=== PATIENT | male | born 1960 | race African-American/Black ===

== ENCOUNTER 2022-07-05 14:33 | Emergency (ER) | payer OTHER ==
[2022-07-05 14:41] VITALS: BMI 23.0
[2022-07-05] MEDS ORDERED: LIDOCAINE HCL 2% JELLY 10 ML CARTRIDGE ONE (15:01)
[2022-07-05] MEDS ORDERED: ONDANSETRON 4 MG/2 ML VIAL IVPUSH ONE (15:15)
[2022-07-05] MEDS ORDERED: ONDANSETRON 4 MG/2 ML VIAL ONE (15:28)
[2022-07-05 15:40] LABS: HEMATOCRIT 38.6 % (35.4-49); HEMOGLOBIN 13.2 GM/dL (11.7-16.9); MCH 35.4 pg (25.7-33.7); MCHC 34.3 g/dl (32.0-35.9); MEAN CELL VOLUME 103.2 fl (80-96); MEAN PLT VOLUME 6.8 fl (7.5-11.1); PLATELET COUNT 259 10^3/uL (134-434); RBC 3.74 M/mm3 (4.00-5.60); RDW 12.9 % (11.9-15.9); WHITE BLOOD COUNT 10.6 K/mm3 (4.0-10.0)
[2022-07-05] MEDS ORDERED: LIDOCAINE HCL 1%, 10 MG/ML (50 mL VIAL) SQ ONE (15:46)
[2022-07-05] MEDS ORDERED: LIDOCAINE HCL 1%, 10 MG/ML (20ML VIAL) ONE (15:46)
[2022-07-05 16:07] LABS: ALBUMIN 4.4 g/dl (3.4-5.0); CALCIUM 9.5 mg/dL (8.5-10.1)
[2022-07-05 16:08] LABS: BLOOD UREA NITROGEN 14.1 mg/dL (7-18)
[2022-07-05] MEDS ORDERED: CEFTRIAXONE 1,000 MG in DEXTROSE 5%-WATER - 50 ML IVPB ONE (16:09)
[2022-07-05 16:12] LABS: BILIRUBIN,TOTAL 0.5 mg/dL (0.2-1); TOT PROT 7.2 g/dl (6.4-8.2)
[2022-07-05 16:20] LABS: ANISOCYTOSIS 1+; MACROCYTOSIS 1+
[2022-07-05 16:28] LABS: EPI CELLS 0 /uL (0-25.1); HYALINE CASTS 0 /uL (0-3.1); PH,URINE 5.5 (5.0-8.0); URINE APPEARANCE CLEAR; URINE BACTERIA 2 /uL (0-1359); URINE BILIRUBIN NEGATIVE (NEGATIVE); URINE COLOR YELLOW; URINE GLUCOSE (UA) NEGATIVE (NEGATIVE); URINE KETONE NEGATIVE (NEGATIVE); URINE LEUK ESTERASE NEGATIVE (NEGATIVE); URINE NITRITE NEGATIVE (NEGATIVE); URINE PROTEIN NEGATIVE (NEGATIVE); URINE RBC 162 /uL (0-23.9); URINE UROBILINOGEN 0.2 mg/dL (0.2-1.0); URINE WBC 4 /uL (0-25.8)
[2022-07-05] MEDS ORDERED: CEFTRIAXONE 1 GM/50 ML BAG ONE (16:30)
[2022-07-05 17:07] VITALS: BP 103/60; PULSE 57; RESP 16; TEMP 98.8
== END 2022-07-05 17:05 | disposition home or self-care (01) ==
LOC: JER 14:33
PROC: 3E03329 Introduction of Other Anti-infective into Peripheral Vein, Percutaneous Approach (ICD-10-PCS; principal; 2022-07-05)
PROC: 3E033NZ Introduction of Analgesics, Hypnotics, Sedatives into Peripheral Vein, Percutaneous Approach (ICD-10-PCS; 2022-07-05)
PROC: 3E033GC Introduction of Other Therapeutic Substance into Peripheral Vein, Percutaneous Approach (ICD-10-PCS; 2022-07-05)
DX: R33.9 Retention of urine, unspecified (principal)
CPT/HCPCS: 36415; 76775-TC; 80053; 81003; 85025; 87086; 99284-25

== ENCOUNTER 2022-07-08 09:12 | Emergency (ER) | payer OTHER ==
[2022-07-08 09:21] VITALS: BP 104/70; PULSE 62; RESP 18; TEMP 98.3; BMI 23.0
== END 2022-07-08 13:00 | disposition home or self-care (01) ==
LOC: JER 09:12
DX: T83.010A Breakdown (mechanical) of cystostomy catheter, initial encounter (principal)
CPT/HCPCS: 99282-25

== ENCOUNTER 2022-07-11 11:18 | Emergency (ER) | payer OTHER ==
[2022-07-11 11:49] VITALS: TEMP 98.5; BMI 21.7
[2022-07-11 14:41] LABS: BASO % 0.5 % (0-2.0); EOS % 1.1 % (0-4.5); HEMATOCRIT 38.6 % (35.4-49); LYMPH % 16.5 % (8-40); MCH 35.4 pg (25.7-33.7); MCHC 33.7 g/dl (32.0-35.9); MEAN CELL VOLUME 105.1 fl (80-96); MEAN PLT VOLUME 6.4 fl (7.5-11.1); NEUT % 73.9 % (42.8-82.8); PLATELET COUNT 269 10^3/uL (134-434); RBC 3.68 M/mm3 (4.00-5.60); RDW 12.8 % (11.9-15.9); WHITE BLOOD COUNT 5.9 K/mm3 (4.0-10.0)
[2022-07-11 14:46] LABS: INR 1.09 (0.83-1.09); PROTHROMBIN TIME (PATIENT) 12.6 SEC (9.7-13.0)
[2022-07-11 14:49] LABS: ACTIVATED PTT 31.9 SECONDS (25.2-36.5)
[2022-07-11 14:59] LABS: BLOOD UREA NITROGEN 13.4 mg/dL (7-18); CALCIUM 9.5 mg/dL (8.5-10.1)
[2022-07-11 15:03] LABS: CREATININE 0.6 mg/dL (0.55-1.3)
[2022-07-11 15:04] LABS: BILIRUBIN,TOTAL 0.7 mg/dL (0.2-1); TOT PROT 7.1 g/dl (6.4-8.2)
[2022-07-11 15:25] LABS: ANISOCYTOSIS 1+; MACROCYTOSIS 0
[2022-07-11 15:39] VITALS: BP 110/70; PULSE 67; RESP 20
== END 2022-07-11 15:39 | disposition home or self-care (01) ==
LOC: JER 11:18
DX: T85.898A Other specified complication of other internal prosthetic devices, implants and grafts, initial encounter (principal)
CPT/HCPCS: 36415; 71046-TC-FY; 80053; 85025; 85610; 85730; 93005; 93010; 99285-25

== ENCOUNTER 2022-07-22 11:42 | Emergency (ER) | payer OTHER ==
[2022-07-22 12:07] VITALS: TEMP 98.2; BMI 23.0
[2022-07-22 15:05] LABS: BASO % 0.8 % (0-2.0); EOS % 1.2 % (0-4.5); HEMOGLOBIN 12.4 GM/dL (11.7-16.9); LYMPH % 6.3 % (8-40); MCHC 34.4 g/dl (32.0-35.9); MEAN CELL VOLUME 104.7 fl (80-96); MEAN PLT VOLUME 5.9 fl (7.5-11.1); MONO % 9.1 % (3.8-10.2); NEUT % 82.6 % (42.8-82.8); PLATELET COUNT 236 10^3/uL (134-434); RBC 3.44 M/mm3 (4.00-5.60); RDW 13.1 % (11.9-15.9); WHITE BLOOD COUNT 10.9 K/mm3 (4.0-10.0)
[2022-07-22 15:25] LABS: CALCIUM 8.8 mg/dL (8.5-10.1)
[2022-07-22 15:26] LABS: ALBUMIN 3.4 g/dl (3.4-5.0); BLOOD UREA NITROGEN 15.4 mg/dL (7-18)
[2022-07-22 15:29] LABS: CREATININE 0.6 mg/dL (0.55-1.3)
[2022-07-22 15:31] LABS: BILIRUBIN,TOTAL 0.5 mg/dL (0.2-1); TOT PROT 6.4 g/dl (6.4-8.2)
[2022-07-22 17:51] VITALS: BP 128/73; PULSE 96; RESP 18
== END 2022-07-22 17:51 | disposition home or self-care (01) ==
LOC: JER 11:42
DX: T83.518A Infection and inflammatory reaction due to other urinary catheter, initial encounter (principal)
CPT/HCPCS: 36415; 80053; 85025; 99283-25

== ENCOUNTER 2022-10-02 12:33 | Emergency (ER) | payer OTHER ==
[2022-10-02 13:12] VITALS: RESP 18; BMI 26.6
[2022-10-02] MEDS ORDERED: ACETAMINOPHEN 500 MG TABLET (FP) PO ONE (14:36)
[2022-10-02 15:27] LABS: EPI CELLS 11 /uL (0-25.1); HYALINE CASTS 4 /uL (0-3.1); URINE APPEARANCE TURBID; URINE BACTERIA 1195 /uL (0-1359); URINE BILIRUBIN NEGATIVE (NEGATIVE); URINE COLOR YELLOW; URINE GLUCOSE (UA) NEGATIVE (NEGATIVE); URINE KETONE NEGATIVE (NEGATIVE); URINE LEUK ESTERASE 3+ (NEGATIVE); URINE NITRITE NEGATIVE (NEGATIVE); URINE PROTEIN 3+ (NEGATIVE); URINE UROBILINOGEN 0.2 mg/dL (0.2-1.0); URINE WBC 4819 /uL (0-25.8)
[2022-10-02] MEDS ORDERED: SULFAMETHOXAZOLE/TRIMETHOPRIM 800MG/160MG D.S. TABLET PO ONE (15:54)
[2022-10-02] MEDS ORDERED: SULFAMETHOXAZOLE/TRIMETHOPRIM 800MG/160MG D.S. TABLET ONE (16:02)
[2022-10-02] MEDS ORDERED: ACETAMINOPHEN 325 MG TABLET (FP) ONE (16:02)
[2022-10-02 17:06] VITALS: PULSE 74; TEMP 97.6
[2022-10-02 19:41] LABS: URINE RBC 560 /uL (0-23.9)
[2022-10-13 19:40] VITALS: BP 104/60
== END 2022-10-02 18:15 | disposition home or self-care (01) ==
LOC: JER 12:33
PROC: 0T2BX0Z Change Drainage Device in Bladder, External Approach (ICD-10-PCS; principal; 2022-10-02)
DX: T83.511A Infection and inflammatory reaction due to indwelling urethral catheter, initial encounter (principal)
CPT/HCPCS: 81003; 87070; 87086; 87186; 87205; 99283-25

== ENCOUNTER 2022-12-04 12:17 | Emergency (ER) | payer OTHER ==
[2022-12-04 12:29] VITALS: BMI 23.4
[2022-12-04 14:07] LABS: EPI CELLS 14 /uL (0-25.1); HYALINE CASTS 2 /uL (0-3.1); PH,URINE 5.5 (5.0-8.0); URINE APPEARANCE CLOUDY; URINE BACTERIA 509 /uL (0-1359); URINE BILIRUBIN NEGATIVE (NEGATIVE); URINE COLOR YELLOW; URINE GLUCOSE (UA) NEGATIVE (NEGATIVE); URINE KETONE NEGATIVE (NEGATIVE); URINE LEUK ESTERASE 2+ (NEGATIVE); URINE NITRITE NEGATIVE (NEGATIVE); URINE PROTEIN 1+ (NEGATIVE); URINE RBC 176 /uL (0-23.9); URINE WBC 1353 /uL (0-25.8)
[2022-12-04] MEDS ORDERED: SULFAMETHOXAZOLE/TRIMETHOPRIM 800MG/160MG D.S. TABLET PO ONE (14:14)
[2022-12-04] MEDS ORDERED: SULFAMETHOXAZOLE/TRIMETHOPRIM 800MG/160MG D.S. TABLET ONE (14:24)
[2022-12-04 15:46] VITALS: BP 106/66; PULSE 62; RESP 18; TEMP 97.6
== END 2022-12-04 16:24 | disposition home or self-care (01) ==
LOC: JER 12:17
DX: N39.0 Urinary tract infection, site not specified (principal); T83.098A Other mechanical complication of other urinary catheter, initial encounter
CPT/HCPCS: 76775-TC; 81003; 87086; 87186; 99284-25

== ENCOUNTER 2023-01-23 10:08 | Emergency (ER) | payer OTHER ==
[2023-01-23 10:22] VITALS: BP 110/67; PULSE 61; RESP 20; TEMP 97.7; BMI 23.4
[2023-01-23] MEDS ORDERED: LIDOCAINE HCL 2% JELLY 6 ML TP ONE (10:29)
[2023-01-23 11:30] LABS: EPI CELLS 10 /uL (0-25.1); HYALINE CASTS 13 /uL (0-3.1); PH,URINE 6.5 (5.0-8.0); URINE APPEARANCE CLOUDY; URINE BACTERIA 1329 /uL (0-1359); URINE BILIRUBIN NEGATIVE (NEGATIVE); URINE COLOR YELLOW; URINE GLUCOSE (UA) NEGATIVE (NEGATIVE); URINE KETONE NEGATIVE (NEGATIVE); URINE LEUK ESTERASE 2+ (NEGATIVE); URINE NITRITE NEGATIVE (NEGATIVE); URINE PROTEIN 2+ (NEGATIVE); URINE RBC 553 /uL (0-23.9); URINE WBC 711 /uL (0-25.8)
== END 2023-01-23 13:55 | disposition home or self-care (01) ==
LOC: JER 10:08
DX: N39.0 Urinary tract infection, site not specified (principal)
CPT/HCPCS: 81003; 87086; 99283-25

== ENCOUNTER 2023-01-26 07:46 | Emergency (ER) | payer OTHER ==
[2023-01-26 07:53] VITALS: RESP 20; TEMP 99.3; BMI 21.5
[2023-01-26 11:24] VITALS: BP 101/58; PULSE 63
== END 2023-01-26 11:32 | disposition home or self-care (01) ==
LOC: JER 07:46
PROC: 0T9B70Z Drainage of Bladder with Drainage Device, Via Natural or Artificial Opening (ICD-10-PCS; principal; 2023-01-26)
PROC: 3E033NZ Introduction of Analgesics, Hypnotics, Sedatives into Peripheral Vein, Percutaneous Approach (ICD-10-PCS; 2023-01-26)
DX: T83.011D Breakdown (mechanical) of indwelling urethral catheter, subsequent encounter (principal); Y84.6 Urinary catheterization as the cause of abnormal reaction of the patient, or of later complication, without mention of misadventure at the time of the procedure
CPT/HCPCS: 87086; 87186; 99283-25

== ENCOUNTER 2023-02-25 09:01 | Emergency (ER) | payer OTHER ==
[2023-02-25 09:37] VITALS: BMI 24.4
[2023-02-25 11:13] LABS: EPI CELLS 8 /uL (0-25.1); HYALINE CASTS 1 /uL (0-3.1); URINE APPEARANCE CLOUDY; URINE BACTERIA 1660 /uL (0-1359); URINE BILIRUBIN NEGATIVE (NEGATIVE); URINE COLOR ORANGE; URINE GLUCOSE (UA) NEGATIVE (NEGATIVE); URINE KETONE NEGATIVE (NEGATIVE); URINE LEUK ESTERASE 3+ (NEGATIVE); URINE NITRITE NEGATIVE (NEGATIVE); URINE PROTEIN 1+ (NEGATIVE); URINE RBC 2483 /uL (0-23.9); URINE UROBILINOGEN 0.2 mg/dL (0.2-1.0); URINE WBC 2642 /uL (0-25.8)
[2023-02-25 12:00] VITALS: BP 111/71; PULSE 62; RESP 16; TEMP 97.9
== END 2023-02-25 12:13 | disposition home or self-care (01) ==
LOC: JER 09:01
PROC: 0T9B70Z Drainage of Bladder with Drainage Device, Via Natural or Artificial Opening (ICD-10-PCS; principal; 2023-02-25)
DX: T83.031A Leakage of indwelling urethral catheter, initial encounter (principal); N30.01 Acute cystitis with hematuria; Y84.6 Urinary catheterization as the cause of abnormal reaction of the patient, or of later complication, without mention of misadventure at the time of the procedure
CPT/HCPCS: 81003; 87086; 87186; 99283-25

== ENCOUNTER 2023-03-25 08:31 | Emergency (ER) | payer OTHER ==
[2023-03-25 09:01] VITALS: BMI 24.4
[2023-03-25 10:29] LABS: EPI CELLS 5 /uL (0-25.1); HYALINE CASTS 0 /uL (0-3.1); PH,URINE 5.5 (5.0-8.0); URINE APPEARANCE CLOUDY; URINE BILIRUBIN NEGATIVE (NEGATIVE); URINE COLOR YELLOW; URINE GLUCOSE (UA) NEGATIVE (NEGATIVE); URINE KETONE NEGATIVE (NEGATIVE); URINE LEUK ESTERASE 2+ (NEGATIVE); URINE NITRITE POSITIVE (NEGATIVE); URINE PROTEIN 1+ (NEGATIVE); URINE RBC 1089 /uL (0-23.9); URINE UROBILINOGEN 0.2 mg/dL (0.2-1.0); URINE WBC 1829 /uL (0-25.8)
[2023-03-25] MEDS ORDERED: NITROFURANTOIN MACROCRYSTAL 50 MG CAPSULE (FP) PO SCH (11:30)
[2023-03-25 12:04] LABS: URINE BACTERIA 995.9 /uL (0-1359)
[2023-03-25 12:28] VITALS: RESP 18; TEMP 97.9
[2023-03-25] MEDS ORDERED: NITROFURANTOIN MACROCRYSTAL 50 MG CAPSULE (FP) ONE (14:08)
[2023-03-25 14:14] VITALS: BP 120/73; PULSE 87
== END 2023-03-25 14:15 | disposition home or self-care (01) ==
LOC: JER 08:31
PROC: 0T9B70Z Drainage of Bladder with Drainage Device, Via Natural or Artificial Opening (ICD-10-PCS; principal; 2023-03-25)
DX: T83.511D Infection and inflammatory reaction due to indwelling urethral catheter, subsequent encounter (principal); T83.9XXS Unspecified complication of genitourinary prosthetic device, implant and graft, sequela; N39.0 Urinary tract infection, site not specified; Y84.6 Urinary catheterization as the cause of abnormal reaction of the patient, or of later complication, without mention of misadventure at the time of the procedure
CPT/HCPCS: 81003; 87086; 87186; 99283-25

== ENCOUNTER 2023-04-17 09:17 | Emergency (ER) | payer OTHER ==
[2023-04-17 09:50] VITALS: RESP 18; BMI 19.0
[2023-04-17 10:41] LABS: EPI CELLS 8 /uL (0-25.1); HYALINE CASTS 7 /uL (0-3.1); PH,URINE 6.5 (5.0-8.0); URINE APPEARANCE CLEAR; URINE BILIRUBIN NEGATIVE (NEGATIVE); URINE COLOR YELLOW; URINE GLUCOSE (UA) NEGATIVE (NEGATIVE); URINE KETONE NEGATIVE (NEGATIVE); URINE LEUK ESTERASE 2+ (NEGATIVE); URINE NITRITE POSITIVE (NEGATIVE); URINE PROTEIN 1+ (NEGATIVE); URINE RBC 385 /uL (0-23.9); URINE WBC 656 /uL (0-25.8)
[2023-04-17] MEDS ORDERED: CEFTRIAXONE 1,000 MG in DEXTROSE 5%-WATER - 50 ML IVPB ONE (11:13)
[2023-04-17] MEDS ORDERED: cefTRIAXone SODIUM 1 GM VIAL ONE (12:39)
[2023-04-17] MEDS ORDERED: LIDOCAINE 5% TOPICAL PATCH TP ONE (13:01)
[2023-04-17] MEDS ORDERED: LIDOCAINE 5% TOPICAL PATCH ONE (13:08)
[2023-04-17 13:59] LABS: URINE BACTERIA 1233 /uL (0-1359)
[2023-04-17 15:17] VITALS: BP 135/75; PULSE 75; TEMP 98
[2023-04-17] MEDS ORDERED: LIDOCAINE PATCH REMOVAL MC ONE (22:00)
== END 2023-04-17 15:25 | disposition home or self-care (01) ==
LOC: JER 09:17
PROC: 3E02329 Introduction of Other Anti-infective into Muscle, Percutaneous Approach (ICD-10-PCS; principal; 2023-04-17)
PROC: 0T9B70Z Drainage of Bladder with Drainage Device, Via Natural or Artificial Opening (ICD-10-PCS; 2023-04-17)
DX: R20.8 Other disturbances of skin sensation (principal); T83.511D Infection and inflammatory reaction due to indwelling urethral catheter, subsequent encounter; Y84.6 Urinary catheterization as the cause of abnormal reaction of the patient, or of later complication, without mention of misadventure at the time of the procedure
CPT/HCPCS: 81003; 87086; 87186; 99284-25

== ENCOUNTER 2023-05-08 14:58 | Emergency (ER) | payer OTHER ==
[2023-05-08 15:25] VITALS: BP 107/75; PULSE 82; RESP 20; TEMP 98.1; BMI 24.2
== END 2023-05-08 17:43 | disposition home or self-care (01) ==
LOC: JER 14:58
PROC: 0T9B70Z Drainage of Bladder with Drainage Device, Via Natural or Artificial Opening (ICD-10-PCS; principal; 2023-05-08)
DX: T83.9XXA Unspecified complication of genitourinary prosthetic device, implant and graft, initial encounter (principal); R33.8 Other retention of urine
CPT/HCPCS: 99283-25

== ENCOUNTER 2023-05-13 13:51 | Emergency (ER) | payer OTHER ==
[2023-05-13 14:20] VITALS: TEMP 98.2; BMI 23.3
[2023-05-13] MEDS ORDERED: LACTATED RINGERS SOLUTION 1000 ML INFUS.BAG IV ONE (15:12)
[2023-05-13 16:10] LABS: BASO % 0.4 % (0-2.0); EOS % 2.6 % (0-4.5); HEMATOCRIT 35.8 % (35.4-49); HEMOGLOBIN 12.1 GM/dL (11.7-16.9); LYMPH % 14.7 % (8-40); MCH 34.4 pg (25.7-33.7); MCHC 33.9 g/dl (32.0-35.9); MEAN CELL VOLUME 101.6 fl (80-96); MEAN PLT VOLUME 6.1 fl (7.5-11.1); MONO % 10.2 % (3.8-10.2); NEUT % 72.1 % (42.8-82.8); PLATELET COUNT 224 10^3/uL (134-434); RBC 3.52 M/mm3 (4.00-5.60); RDW 13.2 % (11.9-15.9); WHITE BLOOD COUNT 6.1 K/mm3 (4.0-10.0)
[2023-05-13 16:30] LABS: POTASSIUM 4.2 mmol/L (3.5-5.1)
[2023-05-13 16:32] LABS: ALBUMIN 3.5 g/dl (3.4-5.0); BLOOD UREA NITROGEN 12.1 mg/dL (7-18)
[2023-05-13 16:35] LABS: CREATININE 0.8 mg/dL (0.55-1.3)
[2023-05-13 16:36] LABS: BILIRUBIN,TOTAL 0.4 mg/dL (0.2-1); TOT PROT 6.3 g/dl (6.4-8.2)
[2023-05-13 17:09] VITALS: BP 102/62; PULSE 58; RESP 16
[2023-05-13 17:15] LABS: EPI CELLS 14 /uL (0-25.1); HYALINE CASTS 5 /uL (0-3.1); URINE APPEARANCE CLOUDY; URINE BACTERIA 134 /uL (0-1359); URINE BILIRUBIN NEGATIVE (NEGATIVE); URINE COLOR YELLOW; URINE GLUCOSE (UA) NEGATIVE (NEGATIVE); URINE KETONE NEGATIVE (NEGATIVE); URINE LEUK ESTERASE 2+ (NEGATIVE); URINE NITRITE NEGATIVE (NEGATIVE); URINE PROTEIN 3+ (NEGATIVE); URINE RBC 79 /uL (0-23.9); URINE WBC 489 /uL (0-25.8)
== END 2023-05-13 21:57 | disposition home or self-care (01) ==
LOC: JER 13:51
PROC: 0T9B70Z Drainage of Bladder with Drainage Device, Via Natural or Artificial Opening (ICD-10-PCS; principal; 2023-05-13)
DX: T83.9XXS Unspecified complication of genitourinary prosthetic device, implant and graft, sequela (principal); T83.511D Infection and inflammatory reaction due to indwelling urethral catheter, subsequent encounter
CPT/HCPCS: 36415; 80053; 81003; 85025; 87086; 99283-25

== ENCOUNTER 2023-05-26 07:51 | Emergency (ER) | payer OTHER ==
[2023-05-26 08:24] VITALS: BP 117/72; PULSE 78; RESP 18; TEMP 97.8; BMI 24.4
[2023-05-26 09:44] LABS: EPI CELLS 30 /uL (0-25.1); HYALINE CASTS 1 /uL (0-3.1); PH,URINE 5.5 (5.0-8.0); URINE APPEARANCE CLEAR; URINE BACTERIA 31 /uL (0-1359); URINE BILIRUBIN NEGATIVE (NEGATIVE); URINE COLOR YELLOW; URINE GLUCOSE (UA) NEGATIVE (NEGATIVE); URINE KETONE NEGATIVE (NEGATIVE); URINE LEUK ESTERASE 2+ (NEGATIVE); URINE NITRITE NEGATIVE (NEGATIVE); URINE PROTEIN NEGATIVE (NEGATIVE); URINE RBC 16 /uL (0-23.9); URINE UROBILINOGEN 0.2 mg/dL (0.2-1.0); URINE WBC 412 /uL (0-25.8)
== END 2023-05-26 12:16 | disposition home or self-care (01) ==
LOC: JER 07:51
PROC: 0T9B70Z Drainage of Bladder with Drainage Device, Via Natural or Artificial Opening (ICD-10-PCS; principal; 2023-05-26)
DX: R33.9 Retention of urine, unspecified (principal); T83.511D Infection and inflammatory reaction due to indwelling urethral catheter, subsequent encounter
CPT/HCPCS: 81003; 87086; 99283-25

== ENCOUNTER 2023-06-02 08:14 | Emergency (ER) | payer OTHER ==
[2023-06-02 08:23] VITALS: BP 100/68; PULSE 71; RESP 18; TEMP 97.9; BMI 27.1
== END 2023-06-02 09:55 | disposition left against medical advice (07) ==
LOC: JER 08:14
DX: Z96.0 Presence of urogenital implants (principal)
CPT/HCPCS: 99281-25

== ENCOUNTER 2023-07-02 18:47 | Inpatient (IN) | payer OTHER ==
[2023-07-02] MEDS ORDERED: SODIUM CHLORIDE 1,000 ML IV STA (18:59)
[2023-07-02 19:02] VITALS: BMI 25.7
[2023-07-02] MEDS ORDERED: VANCOMYCIN 1,000 MG in DEXTROSE 5%-WATER - 250 ML IVPB ONE (19:12)
[2023-07-02] MEDS ORDERED: PIPERACILLIN/TAZOB 3.375 GM 3.375 GM in DEXTROSE 5%-WATER - 50 ML IVPB ONE (19:12)
[2023-07-02] MEDS ORDERED: SODIUM CHLORIDE 0.9% 500 ML INFUS.BAG IV ONE (19:29)
[2023-07-02 19:34] LABS: INR 1.1 (0.83-1.09); PROTHROMBIN TIME (PATIENT) 12.8 SEC (9.7-13.0)
[2023-07-02 19:36] LABS: ACTIVATED PTT 27.7 SECONDS (25.2-36.5)
[2023-07-02 19:41] LABS: POTASSIUM 3.9 mmol/L (3.5-5.1)
[2023-07-02 19:44] LABS: ALBUMIN 3.8 g/dl (3.4-5.0); BLOOD UREA NITROGEN 31.6 mg/dL (7-18); CALCIUM 9.4 mg/dL (8.5-10.1)
[2023-07-02] MEDS ORDERED: VANCOMYCIN 1 GRAM (PRE-DOCKED) 1,000 MG/250 ML BAG IVPB ONE (19:45)
[2023-07-02] MEDS ORDERED: PIPERACILLIN/TAZOB 3.375 GM 3.375 GM/50 ML BAG IVPB ONE (19:45)
[2023-07-02 19:46] LABS: VENOUS BASE EXCESS -5.7 mmol/L (-2-2); VENOUS O2 SATURATION 69.1 % (70-80); VENOUS PCO2 44.6 mmHg (38-52); VENOUS PH 7.289 (7.310-7.410)
[2023-07-02 19:47] LABS: CREATININE 1.9 mg/dL (0.55-1.3)
[2023-07-02 19:49] LABS: BILIRUBIN,TOTAL 0.5 mg/dL (0.2-1); TOT PROT 7.2 g/dl (6.4-8.2)
[2023-07-02 19:57] LABS: BASO % 0.6 % (0-2.0); EOS % 0.5 % (0-4.5); HEMATOCRIT 39.5 % (35.4-49); HEMOGLOBIN 13.4 GM/dL (11.7-16.9); LYMPH % 8.3 % (8-40); MCH 34.7 pg (25.7-33.7); MEAN PLT VOLUME 6.2 fl (7.5-11.1); MONO % 6.4 % (3.8-10.2); NEUT % 84.2 % (42.8-82.8); PLATELET COUNT 243 10^3/uL (134-434); RBC 3.87 M/mm3 (4.00-5.60); RDW 12.9 % (11.9-15.9); WHITE BLOOD COUNT 10.6 K/mm3 (4.0-10.0)
[2023-07-02 20:50] LABS: EPI CELLS 15 /uL (0-25.1); HYALINE CASTS 1 /uL (0-3.1); URINE APPEARANCE CLOUDY; URINE BACTERIA 663 /uL (0-1359); URINE BILIRUBIN NEGATIVE (NEGATIVE); URINE COLOR YELLOW; URINE GLUCOSE (UA) NEGATIVE (NEGATIVE); URINE KETONE NEGATIVE (NEGATIVE); URINE LEUK ESTERASE 3+ (NEGATIVE); URINE NITRITE NEGATIVE (NEGATIVE); URINE PROTEIN TRACE (NEGATIVE); URINE RBC 55 /uL (0-23.9); URINE UROBILINOGEN 0.2 mg/dL (0.2-1.0); URINE WBC 1438 /uL (0-25.8)
[2023-07-02 21:01] LABS: LACTIC ACID 4.2 mmol/L (0.4-2.0)
[2023-07-02] MEDS ORDERED: VANCOMYCIN 1,000 MG in DEXTROSE 5%-WATER - 250 ML IVPB SCH (23:45)
[2023-07-02] MEDS ORDERED: PIPERACILLIN/TAZOB 2.25 GM 2.25 GM in DEXTROSE 5%-WATER - 50 ML IVPB SCH (23:45)
[2023-07-02] MEDS ORDERED: HEPARIN NA (PORCINE) 5,000 UNITS/ML 1ML VIAL ONE (23:59)
[2023-07-03] MEDS: HEPARIN NA (PORCINE) 5,000 UNITS/ML 1ML VIAL SQ SCH ×4 (00:04→21:21)
[2023-07-03] MEDS: SODIUM CHLORIDE 1,000 ML IV SCH ×2 (02:30→16:44)
[2023-07-03] MEDS: PIPERACILLIN/TAZOB 2.25 GM 2.25 GM in DEXTROSE 5%-WATER - 50 ML IVPB SCH ×3 (02:30→17:52)
[2023-07-03] MEDS ORDERED: PIPERACILLIN/TAZOBACTAM 2.25 GM VIAL IVPB ONE (11:51)
[2023-07-03 13:53] LABS: BASO % 0.3 % (0-2.0); EOS % 0.9 % (0-4.5); HEMATOCRIT 39.7 % (35.4-49); HEMOGLOBIN 13.4 GM/dL (11.7-16.9); LYMPH % 9.7 % (8-40); MCH 34.8 pg (25.7-33.7); MCHC 33.8 g/dl (32.0-35.9); MEAN CELL VOLUME 102.9 fl (80-96); MEAN PLT VOLUME 6.4 fl (7.5-11.1); NEUT % 81.1 % (42.8-82.8); PLATELET COUNT 182 10^3/uL (134-434); RBC 3.85 M/mm3 (4.00-5.60); RDW 13.1 % (11.9-15.9); WHITE BLOOD COUNT 8.5 K/mm3 (4.0-10.0)
[2023-07-03 14:14] LABS: POTASSIUM 4.5 mmol/L (3.5-5.1)
[2023-07-03 14:16] LABS: CALCIUM 8.3 mg/dL (8.5-10.1)
[2023-07-03 14:17] LABS: ALBUMIN 3.3 g/dl (3.4-5.0); MAGNESIUM 1.7 mg/dL (1.8-2.4)
[2023-07-03 14:20] LABS: CREATININE 0.9 mg/dL (0.55-1.3); PHOSPHOROUS 3.3 mg/dL (2.5-4.9)
[2023-07-03 14:21] LABS: BILIRUBIN,TOTAL 0.5 mg/dL (0.2-1); TOT PROT 6.3 g/dl (6.4-8.2)
[2023-07-03 14:28] LABS: LACTIC ACID 2.5 mmol/L (0.4-2.0)
[2023-07-03] MEDS ORDERED: MAGNESIUM 2GM/50ML STERILE WATER IVPB IVPB ONE (15:55)
[2023-07-03] MEDS ORDERED: VANCOMYCIN/WATER FOR INJ (PEG) 1,000 MG/200 ML BAG IVPB SCH (19:00)
[2023-07-04] MEDS: HEPARIN NA (PORCINE) 5,000 UNITS/ML 1ML VIAL SQ SCH ×3 (06:10→21:24)
[2023-07-04] MEDS: SODIUM CHLORIDE 1,000 ML IV SCH ×3 (10:01→23:55)
[2023-07-05] MEDS: HEPARIN NA (PORCINE) 5,000 UNITS/ML 1ML VIAL SQ SCH ×3 (05:56→21:41)
[2023-07-05] MEDS ORDERED: SODIUM CHLORIDE 1,000 ML IV SCH (16:15)
[2023-07-05] MEDS: SODIUM CHLORIDE 1,000 ML IV SCH (23:55)
[2023-07-06] MEDS: HEPARIN NA (PORCINE) 5,000 UNITS/ML 1ML VIAL SQ SCH ×3 (06:31→21:01)
[2023-07-06 10:32] LABS: BASO % 0.5 % (0-2.0); HEMATOCRIT 39.7 % (35.4-49); HEMOGLOBIN 13.6 GM/dL (11.7-16.9); LYMPH % 17.4 % (8-40); MCH 34.4 pg (25.7-33.7); MCHC 34.3 g/dl (32.0-35.9); MEAN CELL VOLUME 100.3 fl (80-96); MEAN PLT VOLUME 6.5 fl (7.5-11.1); MONO % 7.5 % (3.8-10.2); NEUT % 72.6 % (42.8-82.8); PLATELET COUNT 232 10^3/uL (134-434); RBC 3.95 M/mm3 (4.00-5.60); RDW 12.4 % (11.9-15.9); WHITE BLOOD COUNT 6.1 K/mm3 (4.0-10.0)
[2023-07-06 10:52] LABS: POTASSIUM 4.3 mmol/L (3.5-5.1)
[2023-07-06 10:57] LABS: ALBUMIN 3.2 g/dl (3.4-5.0); BLOOD UREA NITROGEN 12.4 mg/dL (7-18); CALCIUM 8.7 mg/dL (8.5-10.1); MAGNESIUM 1.7 mg/dL (1.8-2.4)
[2023-07-06 10:59] LABS: BILIRUBIN,TOTAL 0.5 mg/dL (0.2-1)
[2023-07-06 11:01] LABS: CREATININE 0.7 mg/dL (0.55-1.3)
[2023-07-06 11:02] LABS: TOT PROT 6.3 g/dl (6.4-8.2)
[2023-07-06 14:31] VITALS: RESP 18
[2023-07-06] MEDS: SODIUM CHLORIDE 1,000 ML IV SCH (18:57)
[2023-07-07] MEDS: SODIUM CHLORIDE 1,000 ML IV SCH (05:41)
[2023-07-07] MEDS: HEPARIN NA (PORCINE) 5,000 UNITS/ML 1ML VIAL SQ SCH (06:05)
[2023-07-07 14:36] VITALS: BP 100/58; PULSE 73; TEMP 97.5
[2023-07-07] MEDS ORDERED: MAGNESIUM SULF 50% (8.12 MEQ/2 ML-1 GM VIAL) IVPB ONE (16:15)
[2023-07-07] MEDS ORDERED: MAGNESIUM OXIDE 400 MG TABLET (FP) PO ONE (16:25)
== END 2023-07-07 16:38 | disposition home or self-care (01) | DRG 469 ==
LOC: JER 18:47 → JERBED 22:59 → J6S 07-03 00:11
PROVIDERS: ADMIT Internal Medicine; ATTEND Internal Medicine
DX: N17.9 Acute kidney failure, unspecified (principal); E87.20 Acidosis, unspecified; R55 Syncope and collapse; E86.0 Dehydration; N40.1 Benign prostatic hyperplasia with lower urinary tract symptoms; R33.8 Other retention of urine; I95.89 Other hypotension; Z97.8 Presence of other specified devices
CPT/HCPCS: 36415; 71045-TC-FY; 76775-TC; 80053; 81003; 82550; 82803; 83605; 83690; 83735; 84100; 84484; 85025; 85610; 85730; 86850; 86900; 86901; 87040; 87086; 87186; 93005; 93010; 97116-GP; 97162-GP; 99285-25; J1644

== ENCOUNTER 2023-08-17 18:56 | Emergency (ER) | payer OTHER ==
[2023-08-17 19:04] VITALS: BP 110/75; PULSE 83; RESP 16; TEMP 98.1; BMI 28.5
== END 2023-08-17 23:51 | disposition home or self-care (01) ==
LOC: JER 18:56
PROC: 0T9B70Z Drainage of Bladder with Drainage Device, Via Natural or Artificial Opening (ICD-10-PCS; principal; 2023-08-17)
DX: T83.038A Leakage of other urinary catheter, initial encounter (principal); Y83.1 Surgical operation with implant of artificial internal device as the cause of abnormal reaction of the patient, or of later complication, without mention of misadventure at the time of the procedure
CPT/HCPCS: 99283-25

== ENCOUNTER 2023-08-19 01:04 | Emergency (ER) | payer OTHER ==
[2023-08-19] MEDS ORDERED: LIDOCAINE HCL 2% JELLY 10 ML CARTRIDGE PR ONE (01:28)
[2023-08-19] MEDS ORDERED: LIDOCAINE HCL 2% JELLY 11 ML TP ONE (01:29)
[2023-08-19 01:30] VITALS: BP 104/71; PULSE 68; RESP 17; TEMP 98.8; BMI 28.5
== END 2023-08-19 02:59 | disposition home or self-care (01) ==
LOC: JER 01:04
DX: T83.038A Leakage of other urinary catheter, initial encounter (principal); R30.0 Dysuria; R33.9 Retention of urine, unspecified
CPT/HCPCS: 36415; 87491; 87591; 99283-25

== ENCOUNTER 2025-06-19 22:49 | Inpatient (IN) | payer OTHER ==
[2025-06-19 23:20] VITALS: BMI 28.5
[2025-06-20] MEDS ORDERED: ACETAMINOPHEN INJECTION 100 ML ONE (00:06)
[2025-06-20] MEDS: SODIUM CHLORIDE 0.9% 500 ML INFUS.BAG IV ONE ×3 (00:23→03:48)
[2025-06-20] MEDS: ACETAMINOPHEN 1000 MG/100 ML BAG IVPB ONE (00:24)
[2025-06-20 00:30] LABS: EOSINOPHIL % 0.2 % (0.8-7.0); EOSINOPHILS # 0.03 x10^3/uL (0.04-0.54); MONOCYTE # 1.00 x10^3/uL (0.30-0.82)
[2025-06-20 00:32] LABS: ABSOLUTE IMMATURE GRANULOCYTES 0.07 x10^3/uL (0.0-0.031); BASOPHILS # 0.02 x10^3/uL (0.01-0.08); IMMATURE PLATELET FRACTION # 4.10 x10^3/uL; MCHC 32.6 g/dl (32.3-36.5); MEAN CELL VOLUME 102.5 fl (79.0-92.2); MEAN PLT VOLUME 9.7 fl (9.4-12.4); MONOCYTE % 7.9 % (5.3-12.2); RDW 12.4 % (12.2-16.4)
[2025-06-20 01:01] LABS: GLUCOSE,RANDOM 135.0 mg/dL (74-106)
[2025-06-20 01:02] LABS: TOT PROT 7.5 g/dl (6.4-8.2)
[2025-06-20 01:04] LABS: ALK PHOS 92.0 U/L (40-150)
[2025-06-20 01:07] LABS: SGOT/AST 87.0 U/L (5-34); SGPT/ALT 75.0 U/L (0-55)
[2025-06-20 01:22] LABS: CO2 21.0 mmol/L (21-32); CREATININE 0.8 mg/dL (0.55-1.3)
[2025-06-20 01:41] LABS: EPI CELLS 12 /uL (0-25.1); HYALINE CASTS 1 /uL (0-3.1); URINE APPEARANCE TURBID; URINE BACTERIA >9,000 /uL (0-1359); URINE BILIRUBIN NEGATIVE (NEGATIVE); URINE COLOR DK YELLOW; URINE GLUCOSE (UA) NEGATIVE (NEGATIVE); URINE KETONE NEGATIVE (NEGATIVE); URINE LEUK ESTERASE 3+ (NEGATIVE); URINE NITRITE POSITIVE (NEGATIVE); URINE PROTEIN 2+ (NEGATIVE); URINE RBC 80 /uL (0-23.9); URINE UROBILINOGEN 2.0 mg/dL (0.2-1.0); URINE WBC 5482 /uL (0-25.8)
[2025-06-20] MEDS ORDERED: VANCOMYCIN 1 GM PREMIX (F) 1 GM/200 ML BAG ONE (01:54)
[2025-06-20] MEDS ORDERED: PIPERACILLIN/TAZOB 4.5 GM 4.5 GM/100 ML BAG IVPB ONE (01:54)
[2025-06-20] MEDS: PIPERACILLIN/TAZOB 4.5 GM 4.5 GM in DEXTROSE 5%-WATER 100 ML IVPB ONE (01:56)
[2025-06-20] MEDS: VANCOMYCIN 1,000 MG in DEXTROSE 5%-WATER - 250 ML IVPB ONE (01:56)
[2025-06-20] MEDS ORDERED: KETOROLAC TROMETHAMINE 15 MG/ML VIAL ONE (03:47)
[2025-06-20] MEDS: KETOROLAC TROMETHAMINE 15 MG/ML VIAL IVPUSH ONE (03:48)
[2025-06-20] MEDS: PIPERACILLIN/TAZOB 3.375 GM 3.375 GM in DEXTROSE 5%-WATER - 50 ML IVPB SCH ×3 (09:26→18:46)
[2025-06-20] MEDS: TAMSULOSIN HCL 0.4 MG CAP PO SCH (09:26)
[2025-06-20 09:57] LABS: YEAST NONE SEEN (NEGATIVE)
[2025-06-20 10:49] LABS: HIV INTERPRETATION NEGATIVE (NEGATIVE)
[2025-06-20] MEDS: VANCOMYCIN/WATER FOR INJ (PEG) 1,000 MG/200 ML BAG IVPB SCH (12:43)
[2025-06-20] MEDS ORDERED: ACETAMINOPHEN 325 MG TABLET (FP) PO PRN (17:11)
[2025-06-20] MEDS: IBUPROFEN 400 MG TABLET (FP) PO PRN (18:01)
[2025-06-20] MEDS: VANCOMYCIN 1,000 MG in DEXTROSE 5%-WATER - 250 ML IVPB SCH (19:46)
[2025-06-21 08:47] LABS: MCHC 33.0 g/dl (32.3-36.5); MEAN CELL VOLUME 100.6 fl (79.0-92.2); MEAN PLT VOLUME 9.1 fl (9.4-12.4); RDW 12.4 % (12.2-16.4)
[2025-06-21] MEDS: ENOXAPARIN NA (PORCINE) 40 MG/0.4 ML DISP.SYRIN SQ SCH (09:30)
[2025-06-21 09:40] LABS: GLUCOSE,RANDOM 99.0 mg/dL (74-106); TOT PROT 5.5 g/dl (6.4-8.2)
[2025-06-21 09:41] LABS: CO2 22.0 mmol/L (21-32)
[2025-06-21 09:43] LABS: ALK PHOS 94.0 U/L (40-150)
[2025-06-21 09:46] LABS: CREATININE 0.84 mg/dL (0.55-1.3); SGOT/AST 36.0 U/L (5-34); SGPT/ALT 64.0 U/L (0-55)
[2025-06-21] MEDS: POLYETHYLENE GLYCOL (HEALTHYLAX) 3350 17 GM PACKET PO SCH (21:43)
[2025-06-22 08:29] LABS: MCHC 33.1 g/dl (32.3-36.5); MEAN CELL VOLUME 99.7 fl (79.0-92.2); MEAN PLT VOLUME 8.8 fl (9.4-12.4); RDW 12.3 % (12.2-16.4)
[2025-06-22 08:52] LABS: TOT PROT 5.7 g/dl (6.4-8.2)
[2025-06-22 08:54] LABS: ALK PHOS 88.0 U/L (40-150)
[2025-06-22 08:57] LABS: IRON SERUM 53.0 ug/dL (50-175); SGOT/AST 29.0 U/L (5-34); SGPT/ALT 60.0 U/L (0-55)
[2025-06-22 09:05] LABS: GLUCOSE,RANDOM 99.0 mg/dL (74-106); TOT PROT 5.7 g/dl (6.4-8.2)
[2025-06-22 09:07] LABS: CO2 25.0 mmol/L (21-32)
[2025-06-22 09:08] LABS: ALK PHOS 95.0 U/L (40-150)
[2025-06-22 09:11] LABS: CREATININE 0.83 mg/dL (0.55-1.3); SGOT/AST 29.0 U/L (5-34); SGPT/ALT 60.0 U/L (0-55)
[2025-06-22] MEDS: CEFTRIAXONE 1 GM in DEXTROSE 5%-WATER - 50 ML IVPB SCH (12:45)
[2025-06-22 14:14] LABS: HEPATITIS B SURF AG NON-MATERN NON-REACTIVE (NONREACTIVE)
[2025-06-23 11:27] LABS: MCHC 32.4 g/dl (32.3-36.5); MEAN CELL VOLUME 101.4 fl (79.0-92.2); MEAN PLT VOLUME 8.6 fl (9.4-12.4); RDW 12.3 % (12.2-16.4)
[2025-06-23 12:16] LABS: GLUCOSE,RANDOM 113.0 mg/dL (74-106); TOT PROT 6.4 g/dl (6.4-8.2)
[2025-06-23 12:17] LABS: CO2 26.0 mmol/L (21-32)
[2025-06-23 12:19] LABS: ALK PHOS 91.0 U/L (40-150)
[2025-06-23 12:22] LABS: CREATININE 0.74 mg/dL (0.55-1.3); SGOT/AST 30.0 U/L (5-34); SGPT/ALT 68.0 U/L (0-55)
[2025-06-23 23:08] LABS: GLIADIN ANTIBODY IGA 5 units (0-19); TRANSGLUTAMINASE IGG < 2 U/mL (0-5)
[2025-06-24] MEDS: SENNOSIDES 8.6MG TABLET (FP) PO SCH (11:45)
[2025-06-24 12:28] LABS: ABSOLUTE IMMATURE GRANULOCYTES 0.15 x10^3/uL (0.0-0.031); BASOPHILS # 0.04 x10^3/uL (0.01-0.08); EOSINOPHIL % 1.7 % (0.8-7.0); EOSINOPHILS # 0.13 x10^3/uL (0.04-0.54); MCHC 32.3 g/dl (32.3-36.5); MEAN CELL VOLUME 101.1 fl (79.0-92.2); MEAN PLT VOLUME 8.6 fl (9.4-12.4); MONOCYTE # 0.67 x10^3/uL (0.30-0.82); MONOCYTE % 9.0 % (5.3-12.2); RDW 12.3 % (12.2-16.4)
[2025-06-24 13:52] LABS: GLUCOSE,RANDOM 109.0 mg/dL (74-106)
[2025-06-24 13:53] LABS: TOT PROT 6.6 g/dl (6.4-8.2)
[2025-06-24 13:54] LABS: CO2 25.0 mmol/L (21-32)
[2025-06-24 13:55] LABS: ALK PHOS 89.0 U/L (40-150)
[2025-06-24 13:58] LABS: CREATININE 0.75 mg/dL (0.55-1.3); SGOT/AST 35.0 U/L (5-34); SGPT/ALT 73.0 U/L (0-55)
[2025-06-25 10:02] LABS: MCHC 31.8 g/dl (32.3-36.5); MEAN CELL VOLUME 101.2 fl (79.0-92.2); MEAN PLT VOLUME 8.5 fl (9.4-12.4); RDW 12.3 % (12.2-16.4)
[2025-06-25 10:28] LABS: GLUCOSE,RANDOM 102.0 mg/dL (74-106)
[2025-06-25 10:29] LABS: TOT PROT 7.2 g/dl (6.4-8.2)
[2025-06-25 10:30] LABS: CO2 25.0 mmol/L (21-32)
[2025-06-25 10:31] LABS: ALK PHOS 89.0 U/L (40-150)
[2025-06-25 10:34] LABS: CREATININE 0.8 mg/dL (0.55-1.3); SGOT/AST 33.0 U/L (5-34); SGPT/ALT 80.0 U/L (0-55)
[2025-06-25 15:50] VITALS: RESP 18
[2025-06-26 09:40] LABS: MCHC 32.3 g/dl (32.3-36.5); MEAN CELL VOLUME 102.2 fl (79.0-92.2); MEAN PLT VOLUME 8.2 fl (9.4-12.4); RDW 12.5 % (12.2-16.4)
[2025-06-26 10:13] LABS: TOT PROT 7.4 g/dl (6.4-8.2)
[2025-06-26 10:14] LABS: CO2 23.0 mmol/L (21-32)
[2025-06-26 10:15] LABS: ALK PHOS 96.0 U/L (40-150)
[2025-06-26 10:18] LABS: CREATININE 0.79 mg/dL (0.55-1.3); SGOT/AST 25.0 U/L (5-34)
[2025-06-26 10:20] LABS: GLUCOSE,RANDOM 107.0 mg/dL (74-106)
[2025-06-26 10:39] LABS: SGPT/ALT 74.0 U/L (0-55)
[2025-06-27 10:09] VITALS: BP 100/71; PULSE 92; TEMP 97.3
[2025-06-27] MEDS ORDERED: SODIUM ZIRCONIUM CYCLOSILICATE (LOKELMA) 5 GM PACKET PO ONE (11:45)
== END 2025-06-27 11:32 | disposition home or self-care (01) | DRG 690 ==
LOC: JER 22:49 → JERBED 06-20 03:05 → J5S 06-20 05:45 → OBSVTOIN 06-22 09:18
PROVIDERS: ADMIT Internal Medicine
DX: N39.0 Urinary tract infection, site not specified (principal); N40.1 Benign prostatic hyperplasia with lower urinary tract symptoms; B96.20 Unspecified Escherichia coli [E. coli] as the cause of diseases classified elsewhere; N31.9 Neuromuscular dysfunction of bladder, unspecified; R31.9 Hematuria, unspecified
CPT/HCPCS: 36415; 76705-TC; 80053; 80076; 81003; 82105; 82248; 82607; 82728; 82746; 82784; 83516; 83540; 83550; 84153; 85025; 85027; 86038; 86301; 86704; 86708; 86803; 87086; 87340; 87389; 87517; 97116-GP; 97161-GP; 99285-25; G0378